=== PATIENT | male | born 1995 | race Caucasian/White ===

== ENCOUNTER 2017-04-15 19:58 | Emergency (ER) | payer SELFPAY ==
[2017-04-15 20:51] VITALS: BP 146/85
--- NOTE | 2017-04-15 22:36 | XRay Report ---
FINAL REPORT EXAM: XR RIBS BILAT W/PA CHEST 4 HISTORY: CHEST PAIN TECHNIQUE: Single-view chest with additional views of the ribs. Six images PRIORS: None. FINDINGS: No pneumothorax is identified.No focal consolidations are seen in the lungs.The cardiomediastinal silhouette is within normal limits for size and contour. No acute osseous abnormality is identified. IMPRESSION: 1. No definite radiographic evidence of acute cardiopulmonary disease. 2. No displaced rib fracture is identified.
== END 2017-04-16 03:05 | disposition left against medical advice (07) ==
LOC: ED 19:58
DX: Z53.21 Procedure and treatment not carried out due to patient leaving prior to being seen by health care provider (principal)
CPT/HCPCS: 71111; 93005; 93010

== ENCOUNTER 2017-04-18 11:41 | Emergency (ER) | payer OTHER ==
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
[2017-04-18 15:28] VITALS: BP 127/76
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
== END 2017-04-18 15:34 | disposition home or self-care (01) ==
LOC: ED 11:41
DX: S46.912A Strain of unspecified muscle, fascia and tendon at shoulder and upper arm level, left arm, initial encounter (principal); S13.4XXA Sprain of ligaments of cervical spine, initial encounter; J45.909 Unspecified asthma, uncomplicated; V49.49XA Driver injured in collision with other motor vehicles in traffic accident, initial encounter; Y93.9 Activity, unspecified; Y92.9 Unspecified place or not applicable; Y99.9 Unspecified external cause status
CPT/HCPCS: 99283

== ENCOUNTER 2017-11-20 13:19 | Emergency (ER) | payer OTHER ==
[2017-11-20 13:29] VITALS: BP 129/69
--- NOTE | 2017-11-20 16:38 | Emergency Department Report ---
Chief Complaint: Upper Respiratory Infection Stated Complaint: FLU SX Time Seen by Provider: 11/20/17 16:35 - HPI History of Present Illness: Pt is a 22 yo male here for bodyaches , fever up to 102, and flu-like symptoms x 2 days; pt states that he had some diarrhea but no diffculty breathing or swallowing - ROS Review of Systems: ros: other systems reveiwed and neg except as noted per HPI - Exam Vital Signs: Vital Signs 11/20/17 13:27 Temperature 98.1 F Pulse Rate 89 Respiratory 18 Rate Blood Pressure 129/69 O2 Sat by Pulse 99 Oximetry Physical Exam: ros: other systems reviewed and neg except as noted per HPI PE: General : awake, alert in no acute distress Heent: eomi, perrla, mmm; no peritonsillar abscess; no kissing tonsils Lungs: clear and symmetric bilaterally Heart: rrr no m/g/r abd: soft, nd, nt +Bs, no peritoneal signs MSE screening note: Focused history and physical exam performed. Due to findings the following was ordered:rapid flu ED Disposition for MSE Condition: Stable Referrals: PRIMARY CARE, [Primary Care Provider] - 3-5 Days
--- NOTE | 2017-11-20 20:22 | Emergency Department Report ---
Minor Respiratory - HPI Chief Complaint: Upper Respiratory Infection Stated Complaint: FLU SX Time Seen by Provider: 11/20/17 16:35 Duration: 2 Days Pain Location: Nose (congestion) Severity: moderate Minor Respiratory: Yes Rhinorrhea, Yes Able to Tolerate Fluids, Yes Cough, Yes Sick Contacts, Yes Shortness of Breath (using mother inhaler), Yes Fever (fever up to 102), No Sore Throat, No Ear Pain, No Hemoptysis, No Chest Pain Other History: This is a 22 y.o. male presents with fever, cough, body aches, and diarrhea for 2 days. The diarrhea is slowing down. Patient is taking ibuprofen for fever control. He ran out of albuterol inhaler with no refills. He used his mother inhaler yesterday to help control cough. Denies difficulty breathing, chest pain, nausea, vomiting, or abdominal pain. ED Review of Systems ROS: Stated complaint: FLU SX Other details as noted in HPI Constitutional: chills, fever. denies: diaphoresis, malaise, weakness ENT: congestion. denies: ear pain, throat pain Respiratory: cough. denies: shortness of breath, wheezing Cardiovascular: denies: chest pain, palpitations Gastrointestinal: diarrhea. denies: abdominal pain, nausea Musculoskeletal: myalgia (generalized body aches) Neurological: denies: headache, weakness, paresthesias ED Past Medical Hx - Past Medical History Hx Asthma: Yes - Surgical History Additional Surgical History: T&A - Social History Smoking Status: Never Smoker Substance Use Type: None - Medications Home Medications: Home Medications Medication Instructions Recorded Confirmed Last Taken Type Cyclobenzaprine [Flexeril] 10 mg PO TID PRN #15 tablet 04/18/17 Unknown Rx Ibuprofen [Motrin 600 MG tab] 600 mg PO Q8H PRN #20 tablet 04/18/17 Unknown Rx ALBUTEROL Inhaler [ProAir HFA 1 puff IH Q4-6H #1 inha 11/20/17 Unknown Rx Inhaler] Benzonatate 200 mg PO TID PRN #30 capsule 11/20/17 Unknown Rx Cetirizine HCl [Zyrtec] 10 mg PO DAILY #30 tablet 11/20/17 Unknown Rx Fluticasone [Flonase] 1 spray NS QDAY #1 bottle 11/20/17 Unknown Rx Minor Respiratory Exam - Exam General: Vital signs noted. No distress. Alert and acting appropriately. HEENT: Yes Pharyngeal Erythema, Yes Moist Mucous Membranes, Yes Rhinorrhea, No Pharyngeal Exudates, No Conjuctival Injection, No Frontal Tenderness, No Maxillary Tenderness Ear: Neither TM Bulge, Neither TM Erythema, Neither EAC Pain, Neither EAC Discharge Neck: Yes Supple, No Adenopathy Lungs: Yes Good Air Exchange, Yes Cough, No Wheezes, No Ronchi, No Stridor, No Labored Respirations, No Retractions, No Use of Accessory Muscles, No Other Abnormal Lung Sounds Heart: Yes Regular, No Murmur Abdomen: Yes Normal Bowel Sounds, No Tenderness, No Peritoneal Signs Skin: No Rash, No Edema Neurologic: Alert and oriented, no deficits. Musculoskeletal: Unremarkable. ED Course Vital Signs 11/20/17 13:27 Temperature 98.1 F Pulse Rate 89 Respiratory 18 Rate Blood Pressure 129/69 O2 Sat by Pulse 99 Oximetry ED Medical Decision Making - Medical Decision Making This is a 22 y.o. male presents with body aches, chills, cough, diarrhea, and fever for 3 days. Patient request refills on albuterol inhaler. He is stable and examined by me. Taking ibuprofen at home every 6 hours for fever control. Patient is non-toxic appearing. Obtained rapid influenza, negative. No acute signs of distress noted. Susceptible of URI. Discussed plan with patient. He agreed with ER plan. Discharged home with albuterol, benzonatate, ceterizine, and flonase. Take imodium for diarrhea. Continue Supportive care. Encouraged to increase fluid intake to prevent dehydration. Follow up with primary care provider if symptoms are not improved in 5 days of therapy. Critical care attestation.: If time is entered above; I have spent that time in minutes in the direct care of this critically ill patient, excluding procedure time. ED Disposition Clinical Impression: Upper respiratory infection Qualifiers: URI type: acute nasopharyngitis (common cold) Qualified Code(s): J00 - Acute nasopharyngitis [common cold] Asthma Qualifiers: Asthma severity: mild Asthma persistence: intermittent Asthma complication type : uncomplicated Qualified Code(s): J45.20 - Mild intermittent asthma, uncomplicated Disposition: - TO HOME OR SELFCARE Is pt being admited?: No Does the pt Need Aspirin: No Condition: Stable Instructions: Asthma (ED), Upper Respiratory Infection (ED), Cold Symptoms (ED) Additional Instructions: Wash hands frequently. Increase fluid intake to prevent dehydration and rest. Follow up with Primary Care Provider if SOB, fever uncontrolled, chest pain, or N/V. Prescriptions: ALBUTEROL Inhaler [ProAir HFA Inhaler] 1 puff IH Q4-6H #1 inha Benzonatate 200 mg PO TID PRN #30 capsule PRN Reason: Cough Cetirizine HCl [Zyrtec] 10 mg PO DAILY #30 tablet Fluticasone [Flonase] 1 spray NS QDAY #1 bottle Referrals: PRIMARY CARE, [Primary Care Provider] - 3-5 Days [facility] [Outside] - 3-5 Days [facility] [Outside] - 3-5 Days [facility] [Outside] - 3-5 Days Forms: Work/School Release Form(ED) Time of Disposition: 21:35 Print Language: MALAWIAN
== END 2017-11-20 21:49 | disposition home or self-care (01) ==
LOC: ED 13:19
DX: J00 Acute nasopharyngitis [common cold] (principal); J45.20 Mild intermittent asthma, uncomplicated; Z88.2 Allergy status to sulfonamides
CPT/HCPCS: 87400; 99282

== ENCOUNTER 2020-06-15 16:57 | Emergency (ER) | payer SELFPAY ==
[2020-06-15] MEDS ORDERED: IPRATROPIUM 0.02% NEBU 2.5 ML IH ONE (20:19)
[2020-06-15] MEDS ORDERED: ALBUTEROL 2.5 MG/3 ML NEBU IH ONE (20:19)
[2020-06-15] MEDS ORDERED: dexAMETHasone 20 MG/5 ML VIAL IM ONE (20:19)
--- NOTE | 2020-06-15 20:43 | XRay Report ---
CHEST 2 VIEWS INDICATION / CLINICAL INFORMATION: cough, wheezing. COMPARISON: None available. FINDINGS: SUPPORT DEVICES: None. HEART / MEDIASTINUM: No significant abnormality. LUNGS / PLEURA: No significant pulmonary or pleural abnormality. No pneumothorax. ADDITIONAL FINDINGS: No significant additional findings. IMPRESSION: 1. No acute findings. Signer Name: Dustin Cox MD Signed: 06/15/2020 8:39 PM Workstation Name: [id number]
--- NOTE | 2020-06-15 20:51 | Emergency Department Report ---
- General Chief Complaint: Upper Respiratory Infection Stated Complaint: FEVER,SOB,COUGH,CHEST PAIN Time Seen by Provider: 06/15/20 19:41 Source: patient Mode of arrival: Ambulatory Limitations: No Limitations - History of Present Illness Initial Comments: Patient is a 25-year-old male presents emergency room with points of a cough that began 3 days ago. He has associated sneezing, generalized body aches, chest discomfort after frequent coughing. He denies any fever, diarrhea, shortness of breath. He states he had one episode of vomiting today but has not had any since then and has been able to tolerate p.o. intake. He has a past medical history of asthma and states that he has not had to use his inhaler since approximately April. He has an allergy to sulfa. He endorses tobacco use. He denies any sick contacts or recent travel. - Related Data Previous Rx's Medication Instructions Recorded Last Taken Type Cyclobenzaprine [Flexeril] 10 mg PO TID PRN #15 tablet 04/18/17 Unknown Rx Ibuprofen [Motrin 600 MG tab] 600 mg PO Q8H PRN #20 tablet 04/18/17 Unknown Rx Albuterol Mdi (or & Nicu Only) 1 puff IH Q4-6H #1 inha 11/20/17 Unknown Rx [ProAir HFA Inhaler] Benzonatate 200 mg PO TID PRN #30 capsule 11/20/17 Unknown Rx Cetirizine HCl [Zyrtec 10mg tab] 10 mg PO DAILY #30 tablet 11/20/17 Unknown Rx Fluticasone [Flonase] 1 spray NS QDAY #1 bottle 11/20/17 Unknown Rx Albuterol Sulfate [Proventil Hfa] 6.7 gm IH TID PRN #1 hfa.aer.ad 06/15/20 Unknown Rx Azithromycin [Zithromax TAB] 250 mg PO QDAY 5 Days #6 tablet 06/15/20 Unknown Rx Prednisone [predniSONE 10 mg 10 mg PO .TAPER #1 tab.ds.pk 06/15/20 Unknown Rx (6-Day Pack, 21 Tabs)] Allergies Allergy/AdvReac Type Severity Reaction Status Date / Time Sulfa (Sulfonamide Allergy Hives Verified 04/15/17 20:45 Antibiotics) ED Review of Systems ROS: Stated complaint: FEVER,SOB,COUGH,CHEST PAIN Other details as noted in HPI Comment: All other systems reviewed and negative ED Past Medical Hx - Past Medical History Hx Asthma: Yes - Surgical History Additional Surgical History: T&A - Social History Smoking Status: Current Every Day Smoker Substance Use Type: Alcohol - Medications Home Medications: Home Medications Medication Instructions Recorded Confirmed Last Taken Type Cyclobenzaprine [Flexeril] 10 mg PO TID PRN #15 tablet 04/18/17 Unknown Rx Ibuprofen [Motrin 600 MG tab] 600 mg PO Q8H PRN #20 tablet 04/18/17 Unknown Rx Albuterol Mdi (or & Nicu Only) 1 puff IH Q4-6H #1 inha 11/20/17 Unknown Rx [ProAir HFA Inhaler] Benzonatate 200 mg PO TID PRN #30 capsule 11/20/17 Unknown Rx Cetirizine HCl [Zyrtec 10mg tab] 10 mg PO DAILY #30 tablet 11/20/17 Unknown Rx Fluticasone [Flonase] 1 spray NS QDAY #1 bottle 11/20/17 Unknown Rx Albuterol Sulfate [Proventil Hfa] 6.7 gm IH TID PRN #1 hfa.aer.ad 06/15/20 Unknown Rx Azithromycin [Zithromax TAB] 250 mg PO QDAY 5 Days #6 tablet 06/15/20 Unknown Rx Prednisone [predniSONE 10 mg 10 mg PO .TAPER #1 tab.ds.pk 06/15/20 Unknown Rx (6-Day Pack, 21 Tabs)] ED Physical Exam - General Limitations: No Limitations General appearance: alert, in no apparent distress - Head Head exam: Present: atraumatic, normocephalic - Eye Eye exam: Present: normal appearance - ENT ENT exam: Present: mucous membranes moist - Respiratory Respiratory exam: Present: wheezes (expiratory bilaterally), prolonged expiratory. Absent: respiratory distress, rales, rhonchi, stridor, chest wall tenderness, accessory muscle use - Cardiovascular Cardiovascular Exam: Present: regular rate, normal rhythm, normal heart sounds. Absent: systolic murmur, diastolic murmur, rubs, gallop - Neurological Exam Neurological exam: Present: alert, oriented X3 - Psychiatric Psychiatric exam: Present: normal affect, normal mood - Skin Skin exam: Present: warm, dry, intact ED Course Vital Signs 06/15/20 06/15/20 06/15/20 17:12 20:39 21:48 Temperature 97.9 F 98.2 F Pulse Rate 78 75 Pulse Rate [ 64 Bilateral Throughout] Respiratory 14 14 Rate Respiratory 18 Rate [Bilateral Throughout] Blood Pressure 129/60 112/76 [Left] O2 Sat by Pulse 98 98 Oximetry ED Medical Decision Making - Radiology Data Radiology results: report reviewed CHEST 2 VIEWS INDICATION / CLINICAL INFORMATION: cough, wheezing. COMPARISON: None available. FINDINGS: SUPPORT DEVICES: None. HEART / MEDIASTINUM: No significant abnormality. LUNGS / PLEURA: No significant pulmonary or pleural abnormality. No pneumothorax. ADDITIONAL FINDINGS: No significant additional findings. IMPRESSION: 1. No acute findings. Signer Name: Dustin Cox MD Signed: 06/15/2020 8:39 PM Workstation Name: [id number] Transcribed By: TL Dictated By: Dustin Cox MD Electronically Authenticated By: Dustin Cox MD Signed Date/Time: 06/15/202038 DD/ 37 TD/TT: - Medical Decision Making Patient is a 25-year-old male presents emergency room with points of a cough that began 3 days ago. He has associated sneezing, generalized body aches, chest discomfort after frequent coughing. He denies any fever, diarrhea, shortness of breath. He states he had one episode of vomiting today but has not had any since then and has been able to tolerate p.o. intake. He has a past medical history of asthma and states that he has not had to use his inhaler since approximately April. He has an allergy to sulfa. He endorses tobacco use. He denies any sick contacts or recent travel. vitals are normal. On exam patient has expiratory wheezing bilaterally and prolonged expiratory phase, no respiratory distress, no accessory muscle use, no stridor. CXR: 1. No acute findings. Patient given nebulizer treatment and steroids IM and wheezing improved. Patient has no tachycardia, no hypoxia, no fever. Patient will be treated for acute bronchitis. Advised patient Please take medication as prescribed. Please stop smoking. Follow-up with a primary care doctor. Return to emergency room for any new or worsening symptoms. - Differential Diagnosis URI, PNA, acute bronchitis, reactive airway, asthma, viral syndrome Critical care attestation.: If time is entered above; I have spent that time in minutes in the direct care of this critically ill patient, excluding procedure time. ED Disposition Clinical Impression: Tobacco use Asthma exacerbation Qualifiers: Asthma severity: unspecified severity Asthma persistence: unspecified Qualified Code(s): J45.901 - Unspecified asthma with (acute) exacerbation Acute bronchitis Qualifiers: Bronchitis organism: unspecified organism Qualified Code(s): J20.9 - Acute bronchitis, unspecified Disposition: DC- TO HOME OR SELFCARE Is pt being admited?: No Does the pt Need Aspirin: No Condition: Stable Instructions: Asthma (ED), How to Stop Smoking (ED), Acute Bronchitis (ED) Additional Instructions: Please take medication as prescribed. Please stop smoking. Follow-up with a primary care doctor. Return to emergency room for any new or worsening symptoms. Prescriptions: Prednisone [predniSONE 10 mg (6-Day Pack, 21 Tabs)] 10 mg PO .TAPER #1 tab.ds.pk Albuterol Sulfate [Proventil Hfa] 6.7 gm IH TID PRN #1 hfa.aer.ad PRN Reason: Wheezing Azithromycin [Zithromax TAB] 250 mg PO QDAY 5 Days #6 tablet Referrals: JOSE TUBBS MD [Staff Physician] - 2-3 Days [facility] [Provider Group] - 2-3 Days [facility] [Outside] - 2-3 Days Forms: Work/School Release Form(ED) Time of Disposition: 21:34 Print Language: VIET[place]ESE
[2020-06-15 21:49] VITALS: BP 112/76
== END 2020-06-15 21:48 | disposition home or self-care (01) ==
LOC: ED 16:57
DX: J45.901 Unspecified asthma with (acute) exacerbation (principal); Z79.1 Long term (current) use of non-steroidal anti-inflammatories (NSAID); Z72.0 Tobacco use; Z79.2 Long term (current) use of antibiotics; Z79.899 Other long term (current) drug therapy; Z88.2 Allergy status to sulfonamides
CPT/HCPCS: 71046; 94640; 96372; 99283; J1100; 94644

== ENCOUNTER 2021-07-21 11:59 | Emergency (ER) | payer SELFPAY ==
[2021-07-21 12:10] VITALS: BP 152/59
--- NOTE | 2021-07-21 14:05 | Emergency Department Report ---
ED General Adult HPI - General Chief complaint: Extremity Injury, Lower Stated complaint: R HIP PAIN Time Seen by Provider: 07/21/21 13:28 Source: patient Mode of arrival: Ambulatory Limitations: No Limitations - History of Present Illness Initial comments: 26-year-old -[place] male patient presents with complaints of right buttock pain starting yesterday. Patient states he has history of right hip surgery and has pins in place and is concerned about them. He states the pain starts in his right lower back and radiates into his buttocks and his upper thigh. He states that the pain may have begun after pushing something heavy at work. He denies any numbness/tingling/weakness in his limbs, difficulty with ambulation, or loss of bladder/bowel control. Patient rates his current pain as a 6/10 in severity and states it feels like a stiffness and a sharp type pain. He reports tramadol is not helping. Patient states he schedule an appointment with his orthopedic doctor for Wednesday of next week. No other prior medical history per patient. He also denies history of cancer. NKDA - Related Data Previous Rx's Medication Instructions Recorded Last Taken Type Cyclobenzaprine [Flexeril] 10 mg PO TID PRN #15 tablet 04/18/17 Unknown Rx Ibuprofen [Motrin 600 MG tab] 600 mg PO Q8H PRN #20 tablet 04/18/17 Unknown Rx Albuterol Mdi (or & Nicu Only) 1 puff IH Q4-6H #1 inha 11/20/17 Unknown Rx [ProAir HFA Inhaler] Benzonatate 200 mg PO TID PRN #30 capsule 11/20/17 Unknown Rx Cetirizine HCl [Zyrtec 10mg tab] 10 mg PO DAILY #30 tablet 11/20/17 Unknown Rx Fluticasone [Flonase] 1 spray NS QDAY #1 bottle 11/20/17 Unknown Rx Albuterol Sulfate [Proventil Hfa] 6.7 gm IH TID PRN #1 hfa.aer.ad 06/15/20 Unknown Rx Azithromycin [Zithromax TAB] 250 mg PO QDAY 5 Days #6 tablet 06/15/20 Unknown Rx Prednisone [predniSONE 10 mg 10 mg PO .TAPER #1 tab.ds.pk 06/15/20 Unknown Rx (6-Day Pack, 21 Tabs)] Naproxen 500 mg PO BID PRN #20 tablet 07/21/21 Unknown Rx Prednisone [predniSONE 5 mg (6-Day 5 mg PO .TAPER #1 tab.ds.pk 07/21/21 Unknown Rx Pack, 21 Tabs)] methocarbamoL [Methocarbamol] 750 - 1,500 mg PO TID PRN #24 07/21/21 Unknown Rx tablet Allergies Allergy/AdvReac Type Severity Reaction Status Date / Time Sulfa (Sulfonamide Allergy Hives Verified 07/21/21 12:06 Antibiotics) ED Review of Systems ROS: Stated complaint: R HIP PAIN Other details as noted in HPI Constitutional: denies: diaphoresis, fever, malaise Gastrointestinal: denies: abdominal pain, hematochezia Genitourinary: denies: hematuria Musculoskeletal: back pain Neurological: denies: weakness, numbness, paresthesias, abnormal gait ED Past Medical Hx - Past Medical History Hx Asthma: Yes - Surgical History Additional Surgical History: T&A/ HIP DISLOCATION - Social History Smoking Status: Current Every Day Smoker Substance Use Type: Alcohol - Medications Home Medications: Home Medications Medication Instructions Recorded Confirmed Last Taken Type Cyclobenzaprine [Flexeril] 10 mg PO TID PRN #15 tablet 04/18/17 Unknown Rx Ibuprofen [Motrin 600 MG tab] 600 mg PO Q8H PRN #20 tablet 04/18/17 Unknown Rx Albuterol Mdi (or & Nicu Only) 1 puff IH Q4-6H #1 inha 11/20/17 Unknown Rx [ProAir HFA Inhaler] Benzonatate 200 mg PO TID PRN #30 capsule 11/20/17 Unknown Rx Cetirizine HCl [Zyrtec 10mg tab] 10 mg PO DAILY #30 tablet 11/20/17 Unknown Rx Fluticasone [Flonase] 1 spray NS QDAY #1 bottle 11/20/17 Unknown Rx Albuterol Sulfate [Proventil Hfa] 6.7 gm IH TID PRN #1 hfa.aer.ad 06/15/20 Unknown Rx Azithromycin [Zithromax TAB] 250 mg PO QDAY 5 Days #6 tablet 06/15/20 Unknown Rx Prednisone [predniSONE 10 mg 10 mg PO .TAPER #1 tab.ds.pk 06/15/20 Unknown Rx (6-Day Pack, 21 Tabs)] Naproxen 500 mg PO BID PRN #20 tablet 07/21/21 Unknown Rx Prednisone [predniSONE 5 mg (6-Day 5 mg PO .TAPER #1 tab.ds.pk 07/21/21 Unknown Rx Pack, 21 Tabs)] methocarbamoL [Methocarbamol] 750 - 1,500 mg PO TID PRN #24 07/21/21 Unknown Rx tablet ED Physical Exam - General Limitations: No Limitations General appearance: alert, in no apparent distress - Head Head exam: Present: atraumatic, normocephalic - Eye Eye exam: Present: normal appearance. Absent: scleral icterus - Respiratory Respiratory exam: Absent: respiratory distress - Cardiovascular Cardiovascular Exam: Present: regular rate - Extremities Exam Extremities exam: Present: full ROM - Back Exam Back exam: Present: full ROM. Absent: vertebral tenderness - Expanded Back Exam Expanded Back exam: Absent: saddle anesthesia Back exam: Sciatic Notch Tenderness: Right, Positive Straight Leg Raise: Right - Neurological Exam Neurological exam: Present: alert, oriented X3, normal gait. Absent: motor sensory deficit - Expanded Neurological Exam Expanded Sensory exam: Lower Extremity Light Touch: Normal Motor strength exam: RLE: 4, LLE: 4 - Psychiatric Psychiatric exam: Present: normal affect, normal mood - Skin Skin exam: Present: warm, dry, intact, normal color. Absent: rash ED Course Vital Signs 07/21/21 12:09 Temperature 97.9 F Pulse Rate 79 Respiratory 18 Rate Blood Pressure 152/59 O2 Sat by Pulse 97 Oximetry ED Medical Decision Making - Medical Decision Making 26-year-old -[place] male patient presents with complaints of right buttock pain starting yesterday. Patient states he has history of right hip surgery and has pins in place and is concerned about them. He states the pain starts in his right lower back and radiates into his buttocks and his upper thigh. He states that the pain may have begun after pushing something heavy at work. He denies any numbness/tingling/weakness in his limbs, difficulty with ambulation, or loss of bladder/bowel control. Patient rates his current pain as a 6/10 in severity and states it feels like a stiffness and a sharp type pain. He reports tramadol is not helping. Patient states he schedule an appointment with his orthopedic doctor for Wednesday of next week. No other prior medical history per patient. He also denies history of cancer. NKDA Exam is consistent with sciatica. Will treat conservatively with NSAIDs, muscle relaxers, icing, stretching, and rest. Recommend patient follows up with his product management specialist as scheduled. He is well-appearing, his vitals are normal, he is stable for discharge home. Strict return precautions were discussed in detail with patient who verbalizes understanding. Critical care attestation.: If time is entered above; I have spent that time in minutes in the direct care of this critically ill patient, excluding procedure time. ED Disposition Clinical Impression: Right-sided low back pain with sciatica Disposition: HOME / SELF CARE / HOMELESS Is pt being admited?: No Condition: Stable Instructions: Sciatica Prescriptions: methocarbamoL [Methocarbamol] 750 - 1,500 mg PO TID PRN #24 tablet PRN Reason: muscle spasm/tightness Naproxen 500 mg PO BID PRN #20 tablet PRN Reason: pain Prednisone [predniSONE 5 mg (6-Day Pack, 21 Tabs)] 5 mg PO .TAPER #1 tab.ds.pk Forms: Work/School Release Form(ED)
== END 2021-07-21 14:44 | disposition home or self-care (01) ==
LOC: ED 11:59
DX: M54.41 Lumbago with sciatica, right side (principal); J45.909 Unspecified asthma, uncomplicated; F17.200 Nicotine dependence, unspecified, uncomplicated; Z72.89 Other problems related to lifestyle; Z88.2 Allergy status to sulfonamides; Z79.899 Other long term (current) drug therapy
CPT/HCPCS: 99282